=== PATIENT | male | born 1995 | race African-American/Black ===

== ENCOUNTER 2024-03-20 | Emergency (ER) | payer SELFPAY ==
[~2024-03-20] VITALS: Ht 180.3 cm; Wt 79.5 kg
[2024-03-20 01:15] LABS: BASOPHILS % (AUTO) 1.4 % (0.0-2.0); EOSINOPHILS % (AUTO) 4.2 % (1.0-6.0); HEMATOCRIT 42.3 % (41-53); HEMOGLOBIN 13.8 g/dL (13.5-17.5); LYMPHOCYTES # (AUTO) 2.2 K/uL (1.0-4.8); LYMPHOCYTES % (AUTO) 40.7 % (22.0-44.0); MEAN CORPUSCULAR HEMOGLOBIN 29.2 pg (26.0-34.0); MEAN CORPUSCULAR HGB CONC 32.7 G/dL (31.0-37.0); MEAN CORPUSCULAR VOLUME 89 fL (80-100); MONOCYTES # (AUTO) 0.4 K/uL (0.1-1.0); MONOCYTES % (AUTO) 7.6 % (2.0-9.0); NEUTROPHILS # (AUTO) 2.4 K/uL (1.8-7.7); NEUTROPHILS % (AUTO) 46.1 % (40.0-70.0); PLATELET COUNT (AUTO) 308 K/uL (150-450); RED BLOOD CELL COUNT(AUTO) 4.74 MIL/uL (4.50-5.90); RED CELL DISTRIBUTION WIDTH 12.6 % (11.5-14.5); WHITE BLOOD COUNT (AUTO) 5.3 K/uL (4.5-11.0)
[2024-03-20 01:26] LABS: ANION GAP 7 mmol/L (8-16); CALCIUM, TOTAL 9.2 mg/dL (8.8-10.5); CARBON DIOXIDE 32 mmol/L (22-29); CHLORIDE 102 mmol/L (98-107); CREATININE 1.23 mg/dL (0.60-1.30); GLOMERULAR FILTR. RATE CALC > 60 mL/min (>60); GLUCOSE,RANDOM 110 mg/dL (70-110); POTASSIUM 3.3 mmol/L (3.5-5.1); SODIUM SERUM 141 mmol/L (136-145); UREA NITROGEN, BLOOD 9 mg/dL (7-18)
[2024-03-20 01:34] LABS: ALCOHOL, BLOOD (SERUM) < 3 mg/dL (0-10)
[2024-03-20] MEDS: HALOPERIDOL 5 MG TABLET PO ONE ×2 (01:42→08:50)
[2024-03-20] MEDS: LORazepam 2 MG TABLET PO ONE (01:43)
[2024-03-20 02:37] LABS: COVID AG,FIA SOURCE NASAL SWAB
[2024-03-20 02:45] LABS: SARS-COV2 (COVID) ANTIGEN,FIA Negative (Negative)
[2024-03-20] MEDS: POTASSIUM CHLORIDE 20 MEQ ER TABLET PO ONE (02:49)
[2024-03-20 11:05] VITALS: BP 122/63; PULSE 75; RESP 15; TEMP 98.8; O2SAT 99
[2024-03-20 11:42] LABS: PH,URINE DRUG SCREEN 6.5 (5.0-8.0)
[2024-03-20 11:56] LABS: ALCOHOL, URINE DRUG SCREEN NEGATIVE (NEGATIVE); AMPHET/METH SCREEN,URINE NEGATIVE (NEGATIVE); BARBITURATE SCREEN, URINE NEGATIVE (NEGATIVE); BENZODIAZEPINES SCREEN,URINE NEGATIVE (NEGATIVE); CANNABINOID SCREEN,URINE NEGATIVE (NEGATIVE); COCAINE SCREEN,URINE NEGATIVE (NEGATIVE); METHADONE SCREEN, URINE NEGATIVE (NEGATIVE); OPIATE SCREEN,URINE NEGATIVE (NEGATIVE); PHENCYCLIDINE SCREEN,URINE NEGATIVE (NEGATIVE)
== END 2024-03-20 19:45 ==
LOC: EMS
DX: F25.9 Schizoaffective disorder, unspecified (principal); E87.6 Hypokalemia; Z20.822 Contact with and (suspected) exposure to COVID-19
CPT/HCPCS: 99285; 87426; 80048; 85025; 36415; 80307; G0480

== ENCOUNTER 2024-03-23 14:39 | Inpatient (IN) | payer MEDICAID ==
[~2024-03-23] VITALS: Ht 170.2 cm; Wt 67.2 kg
[2024-03-23 15:39] LABS: BASOPHILS % (AUTO) 0.5 % (0.0-2.0); EOSINOPHILS % (AUTO) 7.3 % (1.0-6.0); HEMATOCRIT 42.5 % (41-53); LYMPHOCYTES # (AUTO) 2.3 K/uL (1.0-4.8); MEAN CORPUSCULAR HEMOGLOBIN 29.4 pg (26.0-34.0); MEAN CORPUSCULAR VOLUME 89 fL (80-100); MONOCYTES # (AUTO) 0.4 K/uL (0.1-1.0); MONOCYTES % (AUTO) 7.3 % (2.0-9.0); NEUTROPHILS # (AUTO) 2.7 K/uL (1.8-7.7); NEUTROPHILS % (AUTO) 45.9 % (40.0-70.0); PLATELET COUNT (AUTO) 280 K/uL (150-450); RED BLOOD CELL COUNT(AUTO) 4.77 MIL/uL (4.50-5.90); RED CELL DISTRIBUTION WIDTH 12.7 % (11.5-14.5); WHITE BLOOD COUNT (AUTO) 5.9 K/uL (4.5-11.0)
[2024-03-23 15:52] LABS: ANION GAP 4 mmol/L (8-16); CARBON DIOXIDE 32 mmol/L (22-29); CHLORIDE 104 mmol/L (98-107); CREATININE 1.01 mg/dL (0.60-1.30); GLOMERULAR FILTR. RATE CALC > 60 mL/min (>60); GLUCOSE,RANDOM 66 mg/dL (70-110); SODIUM SERUM 140 mmol/L (136-145); UREA NITROGEN, BLOOD 13 mg/dL (7-18)
[2024-03-23 15:58] LABS: ALCOHOL, URINE DRUG SCREEN NEGATIVE (NEGATIVE); AMPHET/METH SCREEN,URINE NEGATIVE (NEGATIVE); BARBITURATE SCREEN, URINE NEGATIVE (NEGATIVE); BENZODIAZEPINES SCREEN,URINE NEGATIVE (NEGATIVE); CANNABINOID SCREEN,URINE NEGATIVE (NEGATIVE); COCAINE SCREEN,URINE NEGATIVE (NEGATIVE); METHADONE SCREEN, URINE NEGATIVE (NEGATIVE); OPIATE SCREEN,URINE NEGATIVE (NEGATIVE); PHENCYCLIDINE SCREEN,URINE NEGATIVE (NEGATIVE)
[2024-03-23 16:11] LABS: ALCOHOL, BLOOD (SERUM) < 3 mg/dL (0-10)
[2024-03-23 20:45] LABS: COVID AG,FIA SOURCE NASAL SWAB
[2024-03-23] MEDS ORDERED: GuaiFENesin/D-METHORPHAN [SUGAR-FREE] 200-20MG/10 ML SYRUP UDCUP PO PRN (21:00)
[2024-03-23] MEDS ORDERED: LOPERAMIDE HCL 2 MG CAPSULE PO PRN (21:00)
[2024-03-23] MEDS ORDERED: LORazepam 2 MG TABLET PO PRN ×2 (21:00→23:30)
[2024-03-23] MEDS ORDERED: MAG HYDROX/ALUMINUM HYD/SIMETH ES 30 ML SUSPENSION UDCUP PO PRN (21:00)
[2024-03-23] MEDS ORDERED: OLANZapine 5 MG RAPDIS TABLET PO PRN ×2 (21:00→23:30)
[2024-03-23] MEDS ORDERED: MAGNESIUM HYDROXIDE SUSPENSION 30 ML UDCUP PO PRN (21:00)
[2024-03-23] MEDS ORDERED: TUBERCULIN, PURIFIED PROTEIN DERIVATIVE 5 TU/0.1 ML SYRINGE ID ONE (21:00)
[2024-03-23] MEDS ORDERED: ACETAMINOPHEN 325 MG TABLET PO PRN (21:00)
[2024-03-23] MEDS ORDERED: ZOLPIDEM TARTRATE 10 MG TABLET PO PRN ×2 (21:00→23:30)
[2024-03-23] MEDS ORDERED: PROMETHAZINE HCL 25 MG TABLET PO PRN (21:00)
[2024-03-23 21:06] LABS: SARS-COV2 (COVID) ANTIGEN,FIA Negative (Negative)
[2024-03-23] MEDS: OLANZapine 5 MG RAPDIS TABLET PO SCH (21:14)
[2024-03-23] MEDS: MELATONIN 5 MG TABLET PO SCH (21:15)
[2024-03-23] MEDS: LORazepam 0.5 MG TABLET PO SCH (21:15)
[2024-03-23] MEDS: THIAMINE 100 MG TABLET PO SCH (21:15)
[2024-03-23 21:30] VITALS: O2SAT 97
[2024-03-24 01:28] VITALS: BP 111/77; PULSE 64; RESP 18; TEMP 97.4; O2SAT 100
[2024-03-24] MEDS ORDERED: INFLUENZA VIRUS VACCINE TVS (6MO+) 2024-25/PF 45 MCG/0.5 ML SYRINGE IM. ONE (02:30)
[2024-03-24] MEDS: OMEGA-3/DHA/EPA/FISH OIL 1,000 MG CAPSULE PO SCH (08:16)
[2024-03-24] MEDS: FOLIC ACID 1 MG TABLET PO SCH (08:18)
[2024-03-24] MEDS: MULTIVITAMINS WITH MINERALS, THERAPEUTIC TABLET PO SCH (08:18)
[2024-03-24] MEDS: NALTREXONE HCL 50 MG TABLET PO SCH (08:18)
[2024-03-24 08:30] VITALS: RESP 16
[2024-03-24 09:02] LABS: HEMOGLOBIN A1C 4.3 % (3.8-5.6)
[2024-03-24 09:16] LABS: ALBUMIN 3.2 g/dL (3.4-5.0); ALKALINE PHOSPHATASE 67 U/L (46-116); ANION GAP 7 mmol/L (8-16); ASPARTATE AMINOTRANSFERASE 23 U/L (15-37); BILIRUBIN,TOTAL 1.3 mg/dL (0.1-1.0); CALCIUM, TOTAL 8.9 mg/dL (8.8-10.5); CARBON DIOXIDE 26 mmol/L (22-29); CHLORIDE 104 mmol/L (98-107); CHOLESTEROL 101 mg/dL (131-200); CREATININE 0.95 mg/dL (0.60-1.30); GLOMERULAR FILTR. RATE CALC > 60 mL/min (>60); GLUCOSE,RANDOM 123 mg/dL (70-110); HDL CHOLESTEROL 51 mg/dL (40-60); LDL CHOL (CALC.) 44 mg/dL (0-130); POTASSIUM 3.9 mmol/L (3.5-5.1); SODIUM SERUM 137 mmol/L (136-145); THYROID STIMULATING HORMONE 1.78 uIU/mL (0.36-3.74); TOTAL PROTEIN, SERUM 7.1 g/dL (6.4-8.2); TRIGLYCERIDES 31 mg/dL (15-150); UREA NITROGEN, BLOOD 10 mg/dL (7-18)
[2024-03-24 09:18] LABS: ALANINE AMINOTRANSFERASE 5 U/L (12-78)
[2024-03-24 21:06] VITALS: BP 117/69; PULSE 66; RESP 17; TEMP 97.1; O2SAT 100
[2024-03-25 08:03] VITALS: BP 116/76; PULSE 70; RESP 16; TEMP 98.5; O2SAT 100
[2024-03-25] MEDS: HydrOXYzine PAMOATE 50 MG CAPSULE PO PRN (08:13)
[2024-03-25] MEDS ORDERED: NICOTINE 21 MG/24 HOUR PATCH TD PRN (15:45)
[2024-03-25 20:09] VITALS: BP 97/60; PULSE 67; RESP 16; TEMP 97.1; O2SAT 96
[2024-03-26] MEDS: LORazepam 0.5 MG TABLET PO SCH (08:16)
[2024-03-26 08:24] VITALS: BP 113/78; PULSE 60; RESP 17; TEMP 98.2; O2SAT 98
[2024-03-26] MEDS ORDERED: ESZOPICLONE 3 MG TABLET PO PRN (10:45)
[2024-03-26] MEDS: OLANZapine 5 MG RAPDIS TABLET PO SCH (12:58)
[2024-03-26 23:33] VITALS: BP 96/64; PULSE 72; RESP 18; TEMP 97.7; O2SAT 97
[2024-03-27 08:53] VITALS: BP 117/60; PULSE 78; RESP 18; TEMP 98; O2SAT 98
[2024-03-27 21:13] VITALS: BP 117/75; PULSE 81; RESP 17; TEMP 97.7; O2SAT 98
[2024-03-28 08:11] VITALS: BP 126/76; PULSE 74; RESP 18; TEMP 96.7; O2SAT 98
[2024-03-29 08:07] VITALS: BP 122/76; PULSE 87; RESP 18; TEMP 97.8; O2SAT 100
[2024-03-29 23:05] VITALS: BP 120/75; PULSE 85; RESP 18; TEMP 98
[2024-03-30 08:06] VITALS: BP 123/70; PULSE 84; RESP 18; TEMP 98.5; O2SAT 100
[2024-03-30] MEDS ORDERED: GABAPENTIN 300 MG CAPSULE PO PRN (17:00)
[2024-03-30] MEDS: LORazepam 0.5 MG TABLET PO SCH (17:29)
[2024-03-30 20:16] VITALS: BP 120/81; PULSE 82; RESP 17; TEMP 98.2; O2SAT 98
[2024-03-31 08:17] VITALS: BP 124/76; PULSE 81; RESP 17; TEMP 98.4; O2SAT 100
[2024-03-31] MEDS: LORazepam 0.5 MG TABLET PO SCH (17:00)
[2024-03-31 20:16] VITALS: BP 136/76; PULSE 84; RESP 18; TEMP 97.5; O2SAT 98
[2024-04-01] MEDS: FLUoxetine HCL 20 MG CAPSULE PO SCH (08:32)
[2024-04-01 08:45] VITALS: BP 117/72; PULSE 87; RESP 17; TEMP 97.9; O2SAT 96
[2024-04-01 20:19] VITALS: BP 112/66; PULSE 84; RESP 18; TEMP 98.6; O2SAT 97
[2024-04-02 08:18] VITALS: BP 123/76; PULSE 85; RESP 17; TEMP 98.1; O2SAT 100
[2024-04-02] MEDS: FLUoxetine HCL 20 MG CAPSULE PO SCH (08:22)
[2024-04-02 20:38] VITALS: BP 126/92; PULSE 77; RESP 16; TEMP 98.5; O2SAT 100
[2024-04-03] MEDS: BuPROPion HCL XL 150 MG ER TABLET PO SCH (08:13)
[2024-04-03] MEDS: LORazepam 0.5 MG TABLET PO SCH (08:15)
[2024-04-03 08:33] VITALS: BP 101/58; PULSE 71; RESP 16; TEMP 98; O2SAT 97
[2024-04-03 20:14] VITALS: BP 135/73; PULSE 92; RESP 18; TEMP 97.5
[2024-04-04 08:22] VITALS: BP 122/72; PULSE 81; RESP 16; TEMP 98.2; O2SAT 98
[2024-04-04 20:43] VITALS: BP 106/69; PULSE 68; RESP 17; TEMP 97.3; O2SAT 98
[2024-04-05] MEDS: LORazepam 0.5 MG TABLET PO SCH (09:14)
[2024-04-05 15:36] VITALS: RESP 16
[2024-04-05 20:32] VITALS: BP 124/69; PULSE 91; RESP 16; TEMP 97.8; O2SAT 97
[2024-04-06] MEDS: LORazepam 0.5 MG TABLET PO SCH (08:00)
[2024-04-06 09:10] VITALS: BP 125/74; PULSE 81; RESP 18; TEMP 97.9; O2SAT 98
[2024-04-06 20:20] VITALS: BP 122/82; PULSE 83; RESP 18; TEMP 97.5; O2SAT 96
[2024-04-07] MEDS: BuPROPion HCL XL 150 MG ER TABLET PO SCH (08:25)
[2024-04-07] MEDS ORDERED: MELA5TAB40 PO (08:53)
[2024-04-07] MEDS ORDERED: BUPR-514 PO (08:53)
[2024-04-07] MEDS ORDERED: OMEG100033 PO (08:53)
[2024-04-07] MEDS ORDERED: NALT50TA33 PO (08:53)
[2024-04-07] MEDS ORDERED: FLUO-418 PO (08:53)
[2024-04-07] MEDS ORDERED: OLAN5TAB94 PO (08:53)
[2024-04-07 10:27] VITALS: BP 127/78; PULSE 89; RESP 16; TEMP 98.6; O2SAT 99
== END 2024-04-07 14:46 | disposition home or self-care (01) | DRG 750 ==
LOC: EMS 14:39 → B3A 23:23
PROVIDERS: ADMIT Psychiatry & Neurology Psychiatry; ATTEND Psychiatry & Neurology Psychiatry
PROC: GZHZZZZ Group Psychotherapy (ICD-10-PCS; principal; 2024-03-24)
PROC: GZ51ZZZ Individual Psychotherapy, Behavioral (ICD-10-PCS; 2024-03-24)
PROC: GZ58ZZZ Individual Psychotherapy, Cognitive-Behavioral (ICD-10-PCS; 2024-03-24)
PROC: GZ56ZZZ Individual Psychotherapy, Supportive (ICD-10-PCS; 2024-03-25)
DX: F20.2 Catatonic schizophrenia (principal); F15.10 Other stimulant abuse, uncomplicated; F17.210 Nicotine dependence, cigarettes, uncomplicated; Z20.822 Contact with and (suspected) exposure to COVID-19; F41.9 Anxiety disorder, unspecified; F94.0 Selective mutism; F60.0 Paranoid personality disorder; Z65.3 Problems related to other legal circumstances; Z59.00 Homelessness unspecified
CPT/HCPCS: 80048; 80053; 80061; 80307; 83036; 84439; 84443; 85025; 86592; 99285; G0480